=== PATIENT | male | born 1975 | race African-American/Black ===

== ENCOUNTER 2023-12-19 10:16 | Emergency (ER) | payer OTHER ==
[~2023-12-19] VITALS: Ht 172.7 cm; Wt 78.6 kg
[2023-12-19 11:14] VITALS: BP 124/85; PULSE 72; RESP 17; TEMP 98.5; O2SAT 98
[2023-12-19] MEDS ORDERED: HYDR2.5C39 TOP (12:07)
[2023-12-19] MEDS ORDERED: [UNRECOGNIZED DRUG - CODE] EX (12:07)
[2023-12-19] MEDS ORDERED: HYDR25SU21 PR (12:07)
== END 2023-12-19 12:11 | disposition home or self-care (01) ==
LOC: ER 10:16
DX: K64.4 Residual hemorrhoidal skin tags (principal)